=== PATIENT | female | born 1985 ===

== ENCOUNTER 2017-09-15 11:56 | Inpatient (IN) | payer OTHER ==
[~2017-09-15] VITALS: Ht 160 cm; Wt 73.0 kg
[2017-10-05] MEDS ORDERED: PRENATAL TABLE1 EAC3 PO (13:39)
== END 2017-10-07 12:45 | disposition home or self-care (01) | DRG 775 ==
LOC: OB/GYN 09-29 12:30 → LDR 10-05 12:53 → OB/GYN 10-06 08:15
PROC: 0KQM0ZZ Repair Perineum Muscle, Open Approach (ICD-10-PCS; principal; 2017-10-05)
PROC: 4A1HXCZ Monitoring of Products of Conception, Cardiac Rate, External Approach (ICD-10-PCS; 2017-10-05)
PROC: 10E0XZZ Delivery of Products of Conception, External Approach (ICD-10-PCS; 2017-10-05)
PROC: 4A033R1 Measurement of Arterial Saturation, Peripheral, Percutaneous Approach (ICD-10-PCS; 2017-10-06)
DX: O70.1 Second degree perineal laceration during delivery (principal); Z37.0 Single live birth; O48.0 Post-term pregnancy; Z3A.40 40 weeks gestation of pregnancy